=== PATIENT | male | born 1995 | race Caucasian/White ===

== ENCOUNTER 2017-04-13 12:15 | Emergency (ER) | payer OTHER ==
[2017-04-13 12:22] VITALS: RESP 18
[2017-04-13] MEDS ORDERED: fentaNYL 100 MCG/2 ML INJ IVP ONE (14:16)
[2017-04-13] MEDS ORDERED: NS 1,000 ML IV ONE (14:16)
[2017-04-13 14:32] LABS: % IMMATURE GRANULYOCYTES 0.7 % (0.0-1.1); ABSOLUTE IMMATURE GRANULOCYTES 0.06 10^3/uL (0.00-0.10); ADD DIFF? NO; ADD MORPH? NO; ADD SCAN? NO; ATYPICAL LYMPHOCYTE FLAG 20 (0-99); FRAGMENT RBC FLAG 20 (0-99); HEMATOCRIT 49.3 % (40.0-51.0); HEMOGLOBIN 16.9 g/dL (13.7-17.5); LEFT SHIFT FLG 0 (0-99); LIPEMIA HEMOLYSIS FLAG 90 (0-99); MEAN CELL HEMOGLOBIN 29.8 pg (27.9-34.1); MEAN CELL HEMOGLOBIN CONCENTR. 34.3 g/dL (32.4-36.7); MEAN CELL VOLUME 86.9 fL (81.5-99.8); MEAN PLATELET VOLUME 9.9 fL (8.7-11.7); PLATELET CLUMPS FLAG 10 (0-99); PLATELET COUNT 231 10^3/uL (150-400); RED BLOOD CELL COUNT 5.67 10^6/uL (4.40-6.38); RED CELL DISTRIBUTION WIDTH 12.5 % (11.5-15.2)
[2017-04-13 14:34] LABS: ALANINE AMINOTRANSFERASE 31 IU/L (21-72); ALBUMIN 4.4 g/dL (3.5-5.0); ALKALINE PHOSPHATASE 69 IU/L (38-126); ANION GAP 13 mEq/L (8-16); ASPARTATE AMINOTRANSFERASE 22 IU/L (17-59); BILIRUBIN,TOTAL 3.1 mg/dL (0.1-1.4); BILIRUBIN-CONJUGATED 0.7 mg/dL (0.0-0.5); BILIRUBIN-UNCONJUGATED 2.4 mg/dL (0.0-1.1); CALCIUM 9.7 mg/dL (8.5-10.4); CARBON DIOXIDE 27 mEq/l (22-31); CHLORIDE 95 mEq/L (97-110); CREATININE 0.9 mg/dL (0.7-1.3); GLOMERULAR FILTRATION RATE > 60; GLUCOSE 86 mg/dL (70-100); POTASSIUM 3.9 mEq/L (3.5-5.2); SODIUM 135 mEq/L (134-144); TOTAL PROTEIN 7.7 g/dL (6.3-8.2)
[2017-04-13] MEDS ORDERED: IOPAMIDOL (ISOVUE-300) 100 ML BTL ONE (14:39)
[2017-04-13 14:45] VITALS: TEMP 98.4
--- NOTE | 2017-04-13 14:45 | EDPHY ---
H & P Stated Complaint: GENERALIZED LOWER ABD PAIN/NAUSEA/STATES HAD CHILLS LAST NIGHT Time Seen by Provider: 04/13/17 13:34 HPI/ROS: CHIEF COMPLAINT: Abdominal pain HISTORY OF PRESENT ILLNESS: 21-year-old male presents emergency department 2 days of generalized epigastric and supraumbilical abdominal pain. Patient also notes a low-grade fever. Patient has had 1 episode of nausea and near vomiting. 1 episode of diarrhea. Can describe no exacerbating or relieving factors. Some decrease in his appetite. No ill contacts. No roommates with similar symptoms. No travel outside the [place]. Patient denies alcohol , smoking, or marijuana use. He is a [employer] Student. Denies urinary complaints. Denies headache or lightheadedness. REVIEW OF SYSTEMS: Aside from elements discussed in the HPI, a comprehensive 10-point review of systems was reviewed and is negative. PAST MEDICAL HISTORY: Patient denies. SOCIAL HISTORY: Nonsmoker. No alcohol. Here with his parents. Originally from [place]. VITAL SIGNS Reviewed by me. GENERAL: Well-developed, well-nourished, resting comfortably in no respiratory distress. HEENT: Atraumatic. Eyes: No icterus, no injection. Mouth: moist mucous membranes. No erythema or lesions. Neck: supple with no adenopathy. LUNGS: Clear to auscultation bilaterally, no wheezes, rhonchi or rales. CARDIAC: Regular rate and rhythm, no rubs, murmurs or gallops. ABDOMEN: Soft, mild epigastric and supraumbilical tenderness to deep palpation. Mild right lower quadrant tenderness to deep palpation. No guarding or rebound. Normal bowel sounds. No distension. BACK: No CVA tenderness. EXTREMITIES: No trauma. No edema. Range of motion is normal throughout. NEURO: Alert and oriented, grossly nonfocal. SKIN: Warm and dry, no rash. PSYCHIATRIC: Normal mentation, no agitation. - Personal History Current Tetanus/Diphtheria Vaccine: Yes - Medical/Surgical History Hx Asthma: No Hx Chronic Respiratory Disease: No Hx Diabetes: No Hx Cardiac Disease: No Hx Renal Disease: No Hx Cirrhosis: No Hx Alcoholism: No Hx HIV/AIDS: No Hx Splenectomy or Spleen Trauma: No Other PMH: denies PMH - Social History Smoking Status: Never smoked Constitutional: Initial Vital Signs Temperature (C) 36.8 C 08/30/17 12:20 Heart Rate 80 04/13/17 12:20 Respiratory Rate 18 04/13/17 12:20 Blood Pressure 133/94 H 04/13/17 12:20 O2 Sat (%) 97 04/13/17 12:20 O2 Delivery Mode Room Air Allergies/Adverse Reactions: amoxicillin Allergy (Unknown, Verified 04/13/17 12:19) Home Medications: Medication Instructions Recorded NK [No Known Home Meds] 04/13/17 Medical Decision Making - Diagnostics Imaging Results: Imaging Impressions Abdomen CT 04/13/17 14:17 Impression: 1. Prominent small bowel mesenteric nodes may be reactive. Otherwise, no acute abnormalities. 2. Diverticulosis without evidence of diverticulitis. Dr. Fung discussed these findings by telephone with Hailey Monique MD at 15:50. ED Course/Re-evaluation: IV established in the patient received a L normal saline. Normal white count. Normal chemistries. Normal lipase. CT scan of the abdomen pelvis for appendicitis was ordered. CT scan demonstrates a normal appendix. Patient does have prominent lymph nodes suggesting a diagnosis of mesenteric adenitis. Patient will be advised to use ibuprofen on a regular basis. Zofran as needed for any ongoing nausea. Follow up as needed. Return precautions were discussed at length with the patient as well as with his parents. Please see the discharge instructions. Differential Diagnosis: After obtaining the patient's history and performing an examination, differential diagnosis considered included but was not limited to appendicitis, cholecystitis, gastritis, pancreatitis, kidney stones, urinary tract infections and other causes. - Data Points Laboratory Results: Laboratory Results 04/13/17 12:52 04/13/17 12:52 04/13/17 04/13/17 04/13/17 14:42 12:52 12:52 WBC 8.58 10^3/uL 10^3/uL (3.80-9.50) RBC 5.67 10^6/uL 10^6/uL (4.40-6.38) Hgb 16.9 g/dL g/dL (13.7-17.5) Hct 49.3 % % (40.0-51.0) MCV 86.9 fL fL (81.5-99.8) MCH 29.8 pg pg (27.9-34.1) MCHC 34.3 g/dL g/dL (32.4-36.7) RDW 12.5 % % (11.5-15.2) Plt Count 231 10^3/uL 10^3/uL (150-400) MPV 9.9 fL fL (8.7-11.7) Neut % (Auto) 67.4 % % (39.3-74.2) Lymph % (Auto) 16.9 % % (15.0-45.0) [place] % (Auto) 12.0 % % (4.5-13.0) Eos % (Auto) 2.7 % % (0.6-7.6) Baso % (Auto) 0.3 % % (0.3-1.7) Nucleat RBC Rel Count 0.0 % % (0.0-0.2) Absolute Neuts (auto) 5.78 10^3/uL 10^3/uL (1.70-6.50) Absolute Lymphs (auto) 1.45 10^3/uL 10^3/uL (1.00-3.00) Absolute Monos (auto) 1.03 10^3/uL H 10^3/uL (0.30-0.80) Absolute Eos (auto) 0.23 10^3/uL 10^3/uL (0.03-0.40) Absolute Basos (auto) 0.03 10^3/uL 10^3/uL (0.02-0.10) Absolute Nucleated RBC 0.00 10^3/uL 10^3/uL (0-0.01) Immature Gran % 0.7 % % (0.0-1.1) Immature Gran # 0.06 10^3/uL 10^3/uL (0.00-0.10) Sodium 135 mEq/L mEq/L (134-144) Potassium 3.9 mEq/L mEq/L (3.5-5.2) Chloride 95 mEq/L L mEq/L (97-110) Carbon Dioxide 27 mEq/l mEq/l (22-31) Anion Gap 13 mEq/L mEq/L (8-16) BUN 9 mg/dL mg/dL (7-23) Creatinine 0.9 mg/dL mg/dL (0.7-1.3) Estimated GFR > 60 Glucose 86 mg/dL mg/dL (70-100) Calcium 9.7 mg/dL mg/dL (8.5-10.4) Total Bilirubin 3.1 mg/dL H mg/dL (0.1-1.4) Conjugated Bilirubin 0.7 mg/dL H mg/dL (0.0-0.5) Unconjugated Bilirubin 2.4 mg/dL H mg/dL (0.0-1.1) AST 22 IU/L IU/L (17-59) ALT 31 IU/L IU/L (21-72) Alkaline Phosphatase 69 IU/L IU/L (38-126) Total Protein 7.7 g/dL g/dL (6.3-8.2) Albumin 4.4 g/dL g/dL (3.5-5.0) Lipase 26 IU/L IU/L (23-300) Urine Color PALE YELLOW Urine Appearance CLEAR Urine pH 6.0 (5.0-7.5) Ur Specific [place] 1.001 L (1.002-1.030) Urine Protein NEGATIVE (NEGATIVE) Urine Ketones TRACE H (NEGATIVE) Urine Blood NEGATIVE (NEGATIVE) Urine Nitrate NEGATIVE (NEGATIVE) Urine Bilirubin NEGATIVE (NEGATIVE) Urine Urobilinogen NEGATIVE EU EU (0.2-1.0) Ur Leukocyte Esterase NEGATIVE (NEGATIVE) Urine RBC 1-3 /hpf /hpf (0-3) Urine WBC 1-3 /hpf /hpf (0-3) Ur Epithelial Cells TRACE /lpf /lpf (NONE-1+) Urine Glucose NEGATIVE (NEGATIVE) Medications Given: Discontinued Medications Fentanyl (Sublimaze) 75 mcg IVP EDNOW ONE Stop: 04/13/17 14:17 Last Admin: 04/13/17 14:33 Dose: 75 mcg Sodium Chloride (Ns) 1,000 mls @ 0 mls/hr IV EDNOW ONE; Wide Open PRN Reason: Protocol Stop: 04/13/17 14:17 Last Admin: 04/13/17 14:33 Dose: 1,000 mls Ketorolac Tromethamine (Toradol) 30 mg IVP EDNOW ONE Stop: 04/13/17 15:45 Last Admin: 04/13/17 15:48 Dose: 30 mg Departure - Departure Disposition: Home, Routine, Self-Care Clinical Impression: Mesenteric adenitis Abdominal pain Qualifiers: Abdominal location: generalized Qualified Code(s): R10.84 - Generalized abdominal pain Condition: Good Instructions: Acute Abdominal Pain (ED) Additional Instructions: There is no evidence of appendicitis on your CT scan. Your blood work is very reassuring. There is no evidence of a urinary tract infection which may be be causing his discomfort. There is no evidence of an obstruction. For your abdominal pain, I suggested you start with a bland diet and advance as tolerated. This means start with clear liquids such as water, Gatorade, juice, flat non- caffeinated soda. If you tolerate clear liquids, then you may add bland foods such as bananas, rice, or toast. If you do not have any worsening of your symptoms, you may begin to resume a regular diet. I recommend Ibuprofen (Motrin, Advil) or Naproxen Sodium (Aleve) for pain and anti-inflammatory effects. You may take either one, but do not take both. Your dose is: Ibuprofen 600 mg every 6-8 hours with food. OR Naproxen Sodium (Aleve) 220 mg every 12 hours. Please follow up with primary care physician if you're not improving as expected. You may be seen at [facility]. For your insomnia, I suggest melatonin and Benadryl. Referrals: [facility],. [Clinic] - As per Instructions Maxime Sumner MD [Medical Doctor] - As per Instructions
[2017-04-13 15:04] LABS: COLOR PALE YELLOW; LEUKOCYTE ESTERASE,URINE NEGATIVE (NEGATIVE); NITRITE,URINE NEGATIVE (NEGATIVE)
[2017-04-13] MEDS ORDERED: KETOROLAC 30 MG/1 ML SDV IVP ONE (15:44)
[2017-04-13 16:04] VITALS: BP 96/80; PULSE 90; O2SAT 94
== END 2017-04-13 16:04 | disposition home or self-care (01) ==
DX: I88.0 Nonspecific mesenteric lymphadenitis (principal); E86.9 Volume depletion, unspecified
CPT/HCPCS: 96374; J1885; J3010; Q9967

== ENCOUNTER 2018-06-09 11:02 | Emergency (ER) | payer OTHER ==
[2018-06-09] MEDS ORDERED: ONDANSETRON 4 MG/2 ML VIAL IVP ONE (11:54)
[2018-06-09] MEDS ORDERED: PROMETHAZINE HCL 25 MG/ML INJ IVP ONE (11:54)
[2018-06-09] MEDS ORDERED: DICYCLOMINE 10 MG CAP PO ONE (11:55)
--- NOTE | 2018-06-09 11:55 | EDPHY ---
General - History Smoking Status: Never smoked Time Seen by Provider: 06/09/18 11:46 Narrative: CHIEF COMPLAINT: Abdominal pain HISTORY OF PRESENT ILLNESS: Patient presents by private vehicle with complaints of abdominal pain. Symptoms started 3 days ago. They are constant duration. Located just below the umbilicus bilaterally. Constant in nature. Describes an aching, cramping pain. Associated with nausea but no vomiting. Currently rated 4/10 per worse palpation movement. Improved at rest. Improves when nothing by mouth. No fever. No headache. No neck pain or stiffness. He did start a new medication approximately V months ago but does not think this. He has no abdominal pathology or surgical history. No constipation or diarrhea. No other associated complaints or modifying factors REVIEW OF SYSTEMS: 10 systems were reviewed and negative with the exception of the elements mentioned in the history of present illness. PCP: In [facility] SPECIALISTS: None PAST MEDICAL HISTORY: Anxiety PAST SURGICAL HISTORY: No surgical history SOCIAL HISTORY: Nonsmoker. No drug or alcohol use. Lives here independently. FAMILY HISTORY: Noncontributory EXAMINATION: General Appearance: Alert, no distress Head: normocephalic, atraumatic Eyes: Pupils equal and round, no conjunctival pallor or injection ENT, Mouth: Mucous membranes moist Neck: Normal inspection, supple, non-tender Respiratory: Lungs are clear to auscultation Cardiovascular: Regular rate and rhythm Gastrointestinal: Abdomen is soft and nondistended. There is no tympany, rigidity or guarding. There is minimal lower quadrant tenderness bilaterally. Negative McBurney's. Negative psoas sign. No CVA tenderness. Bowel sounds present all 4 quadrants. Back: non-tender, no bony abnormalities Neurological: A&O, nonfocal, normal gait Skin: Warm and dry, no rash Extremities: Nontender, no pedal edema Psychiatric: Mood and affect normal DIFFERENTIAL DIAGNOSES: Including but not limited to gastritis, enteritis, colitis, mesenteric adenitis , appendicitis, cholecystitis, cholelithiasis, serotonin sensitivity, drug intolerance MDM: 11:45 a.m. Generalized abdominal discomfort with some achiness and nausea. He has no appetite. He has minimal tenderness of the lower abdomen with no right lower quadrant point tenderness. No guarding. No tympany rigidity. His vital signs are within normal limits. He is not actively vomiting. I have ordered laboratory studies, IV fluid and symptomatic medications. Do not feel he warrants any emergent imaging at this time. He is in no acute distress. 12:45 p.m. Patient re-evaluated. He has received IV fluid and symptoms are improving. He and I discussed at length CT scan versus symptomatic care and repeat, closed examinations. He would like to discuss further with his mother and will consider this. 1:30 p.m. Patient has been evaluated Dr. Guzmán and CT scan was ordered. 2:[address] scan negative for any acute findings other than lymphadenopathy as documented. I have re-evaluated the patient. We discussed the findings and likely had a viral etiology. We discussed possible gastritis, peptic ulcer and even possible adverse drug reaction. We discuss antiemetics, topical symptomatic medications, antacids and short drug holiday to see if this helps his symptoms. We discussed follow up primary care physician. We discussed ED precautions for worsening pain, persistent pain, persistent vomiting or fever. He is comfortable this plan and discharged home stable condition per SUPERVISION: Patient was evaluated and examined in conjunction with my secondary supervising physician as documented. We have both examined the patient. CONSULTATION: None (Shaji Bowers) Medical Decision Making: Independent physician evaluation: I evaluated and participated in the management of the patient. I also evaluated the patient independently. My co-signature indicates that I have reviewed this chart and I agree with the findings and plan of care as documented. My personal H&P findings include: The patient presents the ED with 3 days of generalized abdominal pain and malaise. The patient reports nausea without significant vomiting or diarrhea. The patient does report subjective fevers. The patient has no prior history of significant abdominal pathology. Physical exam: General Appearance: Alert, no distress Eyes: Pupils equal and round no pallor or injection ENT, Mouth: Mucous membranes moist Respiratory: There are no retractions, lungs are clear to auscultation Cardiovascular: Regular rate and rhythm Gastrointestinal: Generalized abdominal pain and tenderness, no peritoneal signs, mild tenderness in the right lower quadrant which is not appear to be worsened other portions of the abdomen Neurological: A&O, normal motor function, normal sensory exam, normal cranial nerves Skin: Warm and dry, no rashes Musculoskeletal: Neck is supple nontender Extremities: symmetrical, full range of motion Psychiatric: Patient is oriented X 3, there is no agitation ED course: Patient had an IV established. He was treated with IV fluids and pain medications. The patient was noted to have a mild leukocytosis. We discussed the risks and benefits of CT scanning. His examination is not classic for appendicitis however given his tenderness and leukocytosis we feel a CT scan would be helpful to exclude more significant intra-abdominal pathology. CT scan demonstrates no evidence of significant intra-abdominal pathology. The patient may have a mild degree of mesenteric adenitis. Patient will be discharged home with plans for conservative treatment. He is given customary aftercare instructions and return precautions. (Aníbal Guzmán) - Objective Vital Signs: Initial Vital Signs Temperature (C) 98.4 F 06/09/18 11:15 Heart Rate 99 06/09/18 11:15 Respiratory Rate 18 06/09/18 11:15 Blood Pressure 114/86 H 06/09/18 11:15 O2 Sat (%) 99 06/09/18 11:15 O2 Delivery Mode Room Air Allergies/Adverse Reactions: amoxicillin Allergy (Unknown, Verified 04/13/17 12:19) Home Medications: Medication Instructions Recorded Buspar (*) 06/09/18 Ondansetron Odt [Zofran Odt] 4 mg PO Q4PRN PRN #20 tab 06/09/18 Promethazine HCl [Phenergan 25mg 25 mg PO Q8 PRN #12 tab 06/09/18 (*)] Laboratory Results: Laboratory Results 06/09/18 11:43 06/09/18 11:43 Medications Given: Discontinued Medications Dicyclomine HCl (Bentyl) 20 mg PO EDNOW ONE Stop: 06/09/18 11:56 Last Admin: 06/09/18 12:13 Dose: 20 mg Ketorolac Tromethamine (Toradol) 30 mg IVP EDNOW ONE Stop: 06/09/18 13:38 Last Admin: 06/09/18 14:23 Dose: 30 mg Ondansetron HCl (Zofran) 4 mg IVP EDNOW ONE Stop: 06/09/18 11:55 Last Admin: 06/09/18 12:13 Dose: 4 mg Promethazine HCl (Phenergan) 12.5 mg IVP EDNOW ONE Stop: 06/09/18 11:55 Last Admin: 06/09/18 12:13 Dose: 12.5 mg Departure - Departure Disposition: Home, Routine, Self-Care Clinical Impression: Abdominal pain Qualifiers: Abdominal location: lower abdomen, unspecified Qualified Code(s): R10.30 - Lower abdominal pain, unspecified Condition: Good Instructions: Clear Liquid Diet (ED), Acute Nausea and Vomiting (ED), Abdominal Pain (ED), Mesenteric Adenitis (ED) Additional Instructions: 1. Ibuprofen [id number], 600 mg every 6-8 hours as needed. Mylanta over- the-counter as discussed as needed 2. Clear liquid diet. Advance slowly as tolerated 3. Keep your appointment at [facility] on Tuesday 4. ED precautions as discussed Referrals: MCKAY CHANDRA [Other] - As per Instructions [facility],. [Clinic] - Stand Alone Forms: School Excuse Prescriptions: Ondansetron Odt [Zofran Odt] 4 mg PO Q4PRN PRN #20 tab PRN Reason: For Nausea Promethazine HCl [Phenergan 25mg (*)] 25 mg PO Q8 PRN #12 tab PRN Reason: Nausea/Vomiting, Use 1st
[2018-06-09 12:03] LABS: PLATELET COUNT 241 10^3/uL (150-400)
[2018-06-09] MEDS ORDERED: KETOROLAC 30 MG/1 ML SDV IVP ONE (13:37)
[2018-06-09] MEDS ORDERED: IOPAMIDOL (ISOVUE-300) 100 ML BTL ONE (13:48)
[2018-06-09 15:00] VITALS: BP 125/74
== END 2018-06-09 15:00 | disposition home or self-care (01) ==
DX: R10.30 Lower abdominal pain, unspecified (principal)
CPT/HCPCS: 96374; J1885; J2405; J2550; Q9967